=== PATIENT | female | born 1970 | race Caucasian/White ===

== ENCOUNTER → 2017-01-21 | Outpatient (CLI) | payer BC, OTHER ==
[~2017-01-21] VITALS: Ht 175.3 cm; Wt 65.8 kg
[~2017-01-21] MED LIST: SYNTHROID75 MCG PO
--- NOTE | ~2017-01-21 | HPC ---
[facility] [place] [address] PAIN MANAGEMENT CONSULTATION Name: JELENA REYES [id number] Admission: 01/21/17 Attend Phys: Shivam Avelar DO Discharge: Date of : 66 Report #: [id number] THIS REPORT FOR: //name// CC: [facility] physician/PCP Shivam Avelar DATE OF SERVICE: 01/21/2017 CHIEF COMPLAINT: Low back pain, right lower extremity pain with paresthesias. HISTORY OF PRESENT ILLNESS: As you know, the patient is a very pleasant 46-year-old female who reports a 1 month history of low back pain, right lower extremity pain. She indicates pain began without inciting injury or trauma. She indicates pain is exacerbated with activities of sitting, bending, Valsalva maneuver, sneezing, and coughing. She indicates pain is crushing, numbness and tingling when describing symptoms, places current pain score 7/10, daily average at 7-8/10, worst pain has been is 9/10. The patient states that standing tends to improve pain as does repositioning. She has been referred to our service for evaluation for suspected lumbar radiculopathy. PAST MEDICAL HISTORY: 1. Asthma. 2. Hypothyroidism. PAST SURGICAL HISTORY: Tonsillectomy and adenoidectomy. SOCIAL HISTORY: The patient denies tobacco, IV or illicit drug use, admits to occasional alcoholic beverage. 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 She is working, not receiving workmen's compensation nor is she trying to obtain disability benefits. She is not in litigation in regards to pain. REVIEW OF SYSTEMS: Positive only for asthma and wheezing, low back pain, right lower extremity pain and paresthesias, thyroid disease, heat and cold intolerance. All other review of systems negative per 12-point review of systems other than those listed in history of present illness. PAIN IMPACT SCORE: 49/70 indicating [id number] interference of daily activities secondary to pain. ALLERGIES: IV CONTRAST AGENT, NONSTEROIDAL ANTI-INFLAMMATORIES, and SULFA. CURRENT MEDICATIONS: Levothyroxine 75 mcg once a day. IMAGING: No imaging available. [facility] [address] [place] [address] PAIN MANAGEMENT CONSULTATION Name: CM REYESSUSAN Cobian Room #: REG [facility]#: [id number] Admission: 01/21/17 Attend Phys: Shivam Avelar DO Discharge: Date of : 66 Report #: [id number] PHYSICAL EXAMINATION: VITAL SIGNS: Blood pressure 119/67, pulse is 77, respiratory rate 16 and unlabored, the patient is 98% on room air, height 5 feet 9 inches tall, weight 145 pounds, and BMI calculated 21.4. GENERAL: Well-developed, well-nourished, well-hydrated 46-year-old female, appearing her stated age, she is in mild distress secondary to pain, placing current pain score 7/10. HEENT: Normocephalic, atraumatic. Pupils are equal, round, and reactive to light. Extraocular muscles are intact. Sclerae are nonicteric without injection. NEUROLOGIC: Cranial nerves 2-12 are grossly intact. Speech is fluent. The patient deemed an excellent historian. LUNGS: Clear. No wheeze, rhonchi, or rales. CARDIOVASCULAR: Regular. No appreciable gallop. No rub. ABDOMEN: Soft, nontender, nondistended, normoactive bowel sounds. EXTREMITIES: Show no clubbing, no cyanosis, and no edema. MUSCULOSKELETAL: Lower extremity strength appears equal and symmetrical 5/5, intact to light touch from L1 through S2 dermatomes. Seated straight leg raising negative. Supine straight leg raising positive on the right. Corine's test negative. Modified Gaenslen's positive for some axial low back pain. No spinous process tenderness. Valsalva test is positive. ASSESSMENT: 1. Symptomatic lumbar radiculopathy. 2. Lumbosacral spondylosis with radicular symptoms. PLAN: 1. Based on today's physical exam, history the patient has provided, the description the patient uses in regards to pain as well as the location of symptoms and the description she uses for the symptoms themselves likely source of the patient's pain is lumbar radiculopathy. Given the distribution of symptoms along the L5 dermatome on the right the likely source of the patient's pain is at the L4-L5 level. It is difficult to determine whether this is a neural foraminal stenosis, a central disk protrusion causing lateral recess stenosis or possibly even a central canal spinal stenosis with the findings on physical exam. The fact that the patient had acute onset of pain would be more concerning of a disk protrusion/herniation. We have discussed with the patient treatment options for lumbar radicular pain, the treatments are as follows. We discussed physical therapy, stretching exercises, core strengthening as a way to treat symptoms, we discussed medication management with neuropathic pain medications in the form of Neurontin, Lyrica, nortriptyline, and amitriptyline. We discussed epidural injections under fluoroscopic guidance to address ongoing pain issues. We discussed spinal cord stimulator therapy and surgical options. After reviewing risks and benefits of all proposed treatment options, the patient chose to begin with an epidural injection under fluoroscopic guidance. [address] [address] PAIN MANAGEMENT CONSULTATION Name: JELENA REYES Room #: [facility]#: [id number] Admission: 01/21/17 Attend Phys: Shivam Avelar DO Discharge: Date of : 66 Report #: [id number] The patient was advised risks and benefits of a lumbar epidural injection. These risks include, but not necessarily limited to bleeding, bruising, infection, worsening of pain, no relief of pain, also risk of temporary or permanent muscle weakness, temporary or permanent nerve damage, possible paralysis and . The patient states understood and wished to proceed. 2. No medication changes were made at today's visit. The patient to continue current medical therapy as previously prescribed. 3. The patient to return to our clinic in 2 weeks. At that time, we will review the efficacy of today's epidural injection and determine if a repeat injection might be warranted. 4. We wish to thank the referring physician for the opportunity to see the patient in consultation. We will keep you apprised of her response to treatment as we address her lumbar radicular symptoms. Again, we wish to thank you for the opportunity to see her in consultation. PROCEDURE NOTE DESCRIPTION OF PROCEDURE: Lumbar epidural steroid injection under fluoroscopic guidance. After obtaining written consent, the patient was taken back to fluoroscopy suite, placed in prone position with pillow under abdomen to decrease lumbar lordosis. Skin overlying lumbosacral area was then prepped and draped in aseptic fashion. Lumbar intervertebral spaces were identified by AP fluoroscopy. Skin and subcutaneous tissue overlying target site of injection was anesthetized with 3 mL of 1% lidocaine. A 20-gauge 3-1/2-inch Tuohy needle advanced under fluoroscopic guidance towards the epidural space using a right paramedian approach. Epidural space identified using loss of resistance to air technique. Due to a contrast allergy, no contrast agent was used in today's procedure. The needle positioning was confirmed using both AP and lateral fluoroscopy. After negative aspiration for heme or cerebrospinal fluid, 5 mL of a solution containing 2 mL 40 mg per mL, 80 mg total triamcinolone, 3 mL lidocaine 1% was injected slowly. Needle was retracted approximately chcf and needle tract flushed with 3 mL of 1% lidocaine. Needle was removed. Sterile bandage placed over injection site. No new motor deficits present in the lower extremity following procedure. The patient tolerated the procedure well, carefully escorted to recovery room in stable condition. No apparent complications. After meeting discharge criteria, the patient discharged home. By: [id number] Shivam Avelar DO /nt
[2017-01-21 10:17] VITALS: BP 119/67
== END | disposition home or self-care (01) ==
LOC: PAIN 09:58
DX: M47.27 Other spondylosis with radiculopathy, lumbosacral region (principal); J45.909 Unspecified asthma, uncomplicated; E03.9 Hypothyroidism, unspecified; Z98.890 Other specified postprocedural states; Z91.041 Radiographic dye allergy status; Z88.2 Allergy status to sulfonamides; Z88.6 Allergy status to analgesic agent; Z79.899 Other long term (current) drug therapy